=== PATIENT | male | born 1935 | race Caucasian/White ===

== ENCOUNTER 2018-05-25 22:31 | Emergency (ER) | payer OTHER, MEDICARE ==
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
[2018-05-26 02:42] VITALS: BP 183/91
--- NOTE | 2018-05-26 19:17 | EKG REPORT ---
SEVERITY:- NORMAL ECG - SINUS RHYTHM : Confirmed by: Jennifer Schaeffer MD 26-May-2018 19:16:44
== END 2018-05-26 02:59 | disposition home or self-care (01) ==
LOC: ER 22:31
DX: S20.219A Contusion of unspecified front wall of thorax, initial encounter (principal); S80.12XA Contusion of left lower leg, initial encounter; S80.11XA Contusion of right lower leg, initial encounter; R07.89 Other chest pain; M79.604 Pain in right leg; M79.605 Pain in left leg; V49.50XA Passenger injured in collision with unspecified motor vehicles in traffic accident, initial encounter; W22.10XA Striking against or struck by unspecified automobile airbag, initial encounter; I10 Essential (primary) hypertension; E11.9 Type 2 diabetes mellitus without complications; I48.91 Unspecified atrial fibrillation; Z79.01 Long term (current) use of anticoagulants; Z87.891 Personal history of nicotine dependence
CPT/HCPCS: 71046; 93005; 93010; 99284